=== PATIENT | female | born 1965 | race Caucasian/White ===

== ENCOUNTER 2020-03-02 05:35 | Outpatient (RCR) | payer MEDICARE ==
[~2020-03-02] VITALS: Ht 167.6 cm; Wt 91.0 kg
[~2020-03-02 05:35] MED LIST: ALPR1TAB7 PO; ARIP15TA4 PO; BUPR300T43 PO; DEXT15CA2 PO; LEVO112T55 PO; METF-399 PO; RT-ALBUINH IH; SIMV40TA25 PO
== END 2020-03-02 10:50 | disposition home or self-care (01) ==
LOC: PREOP 05:35
PROVIDERS: ATTEND Surgery
DX: Z01.812 Encounter for preprocedural laboratory examination (principal); Z20.828 Contact with and (suspected) exposure to other viral communicable diseases; Z12.11 Encounter for screening for malignant neoplasm of colon
CPT/HCPCS: 87635

== ENCOUNTER 2020-03-05 11:02 | Day surgery (SDC) | payer MEDICARE ==
[~2020-03-05] VITALS: Ht 167.6 cm; Wt 91.0 kg
--- NOTE | 2020-03-05 11:05 | Conscious Sedation/ASA ---
Conscious Sedation Pre-Proced Time 11:05 ASA Score 2 For ASA 3 and 4: Consider anesthesia and medical clearance. Also, for patients with a history of failed moderate sedation consider anesthesia. Airway Lungs Heart ASA score ASA 1: a normal healthy patient ASA 2: a patient with a mild systemic disease (mid diabetes, controlled hypertension, obesity ASA 3: a patient with a severe systemic disease that limits activity (angina, COPD, prior Myocardial infarction) ASA 4: a patient with an incapacitating disease that is a constant threat to life (CHF, renal failure) ASA 5: a moribund patient not expected to survive 24 hrs. (ruptured aneurysm) ASA 6: a declared brain- patient whose organs are being harvested. For emergent operations, add the letter E after the classification Mallampati Classification Grade 2 Sedation Plan Analgesia, Amnesia, Plan communicated to team members, Discussed options with patient/fam, Discussed risks with patient/fam The patient is an appropriate candidate to undergo the planned procedure, sedation, and anesthesia. The patient immediately re-assessed prior to indication. SHUBHAM ESTRELLA MD Mar 05, 2020 11:05
--- NOTE | 2020-03-05 11:06 | Progress Note-Pre Operative ---
Pre-Operative Progress Note H&P Reviewed The H&P was reviewed, patient examined and no changes noted. Date Seen by Provider: Mar 05, 2020 Time Seen by Provider: 11:05 Date H&P Reviewed: Mar 05, 2020 Time H&P Reviewed: 11:05 Pre-Operative Diagnosis: screening colonscopy SHUBHAM ESTRELLA MD Mar 05, 2020 11:05
[2020-03-05] MEDS ORDERED: NS IV 500 ML 500 ML ONE (11:07)
--- NOTE | 2020-03-05 11:07 | Discharge Inst-Surgical ---
D/C Lap Instructions-SAMEER Follow Up Activity as tolerated High Fiber Diet 25g or more per day Avoid Alcohol, Caffeine, Spicy [place] and Acid foods. Drink 64 fluid oz or more of fluids per day. Symptoms to Report: Fever over 101 degree F, Nausea/Vomiting If any problems/questions: Contact your physician or go to Emergency Room SHUBHAM ESTRELLA MD Mar 05, 2020 11:07
[2020-03-05] MEDS ORDERED: NS IV 500 ML 500 ML IV PRN (11:08)
[2020-03-05] MEDS ORDERED: MIDAZOLAM 5 MG/5 ML (VERSED) VIAL IV PRN (11:15)
[2020-03-05] MEDS ORDERED: LIDOCAINE JELLY 2% 6 ML SYRINGE MM PRN (11:15)
[2020-03-05] MEDS ORDERED: ACETAMINOPHEN 325 MG TABLET PO PRN (11:15)
[2020-03-05] MEDS ORDERED: HYDROcodone/APAP 5 MG/325 MG (LORTAB) TAB PO PRN (11:15)
[2020-03-05] MEDS ORDERED: morphine INJ 10 MG/ML 1ML (SYR OR VIAL) IVP PRN ×2 (11:15)
[2020-03-05] MEDS ORDERED: fentaNYL INJECTION 100 MCG/2 ML AMP IVP ONE (11:15)
[2020-03-05] MEDS ORDERED: ONDANSETRON 4 MG/2 ML (SDV) Z0FRAN IVP PRN (11:15)
[2020-03-05 11:20] VITALS: BP 125/78
[2020-03-05] MEDS ORDERED: PROPOFOL INJECTION 50 ML IV ONE (11:51)
[2020-03-05] MEDS ORDERED: MIDAZOLAM 2 MG/2 ML (VERSED) VIAL ONE (11:51)
[2020-03-05] MEDS ORDERED: LIDOCAINE JELLY 2% 6 ML SYRINGE ONE (11:57)
[2020-03-05 12:20] VITALS: BP 105/58
[2020-03-05 12:25] VITALS: BP 98/56
--- NOTE | 2020-03-05 12:27 | Progress Note-Post Operative ---
Post-Operative Progess Note Surgeon (s)/Crystal Calibrator (s) Surgeon SHUBHAM ESTRELLA MD Crystal Calibrator: none Pre-Operative Diagnosis screening colonscopy Post-Operative Diagnosis chronic stage 2 ext and int hemorrhoids, moderate sigmoid diverticulosis. small HP rectal polyp. Procedure & Operative Findings Date of Procedure 03/05/20 Procedure Performed/Findings colonoscopy with bx. Anesthesia Type mac Estimated Blood Loss Estimated blood loss (mL): minimal Specimens/Packing Specimens Removed rectal polyp SHUBHAM ESTRELLA MD Mar 05, 2020 12:26
[2020-03-05 12:30] VITALS: BP 94/51
--- NOTE | 2020-03-05 12:40 | Anesthesia-General Post-Op ---
MAC Patient Condition Mental Status/LOC: Same as Preop Cardiovascular: Satisfactory Nausea/Vomiting: Absent Respiratory: Satisfactory Pain: Controlled Complications: Absent Post Op Complications Complications None Follow Up Care/Instructions Patient Instructions None needed. Anesthesiology Discharge Order Discharge Order Patient is doing well, no complaints, stable vital signs, no apparent adverse anesthesia problems. No complications reported per nursing. RACHELLE ANDUJAR CRNA Mar 05, 2020 12:40
[2020-03-05 13:00] VITALS: BP 126/85
[2020-03-05 13:13] VITALS: BP 126/85
--- OUTSIDE RECORDS SUMMARY | 2020-03-05 13:23 | XMS REPORT | Continuity of Care Document ---
Author Organization Unknown Address Unknown Phone Unavailable Allergies Active Description Code Type Severity Reaction Onset Reported/Identified Relationship to Patient Clinical Status Yes NO KNOWN DRUG ALLERGIES UNKNOWN NO KNOWN DRUG ALLERG Yes NO KNOWN DRUG ALLERGIES UNKNOWN UNKNOWN Yes No Known Drug Allergies [id number] Drug Allergy Unknown N/A 02/27/2020 Medications There is no data. Problems Date Dx Coded Attending Type Code Diagnosis Diagnosed By 07/10/2017 W 244.9 UNSP ECIFIED HYPOTHYROIDISM 07/10/2017 W 250.00 LISA BETES MELLITUS WITHOUT MENTION OF COMPLICATION, TYPE II OR UNSPECIFIED TYPE, NOT STATED UNCONTROLLED 07/10/2017 W 272.8 OTHE R DISORDERS OF LIPOID METABOLISM 07/10/2017 W 296.7 BIPO LAR I DISORDER, MOST RECENT EPISODE (OR CURRENT) UNSPECIFIED 07/10/2017 W 300.00 ANX IETY STATE, UNSPECIFIED 07/10/2017 W 401.9 UNSP ECIFIED ESSENTIAL HYPERTENSION 07/10/2017 W 558.9 OTHE R AND UNSPECIFIED NONINFECTIOUS GASTROENTERITIS AND COLITIS 07/10/2017 W 715.95 OST EOARTHROSIS, UNSPECIFIED WHETHER GENERALIZED OR LOCALIZED, INVOLVING PELVIC REGION AND THIGH 07/10/2017 W E03.9 HYPO THYROIDISM, UNSPECIFIED 07/10/2017 W E11.9 TYPE 2 DIABETES MELLITUS WITHOUT COMPLICATIONS 07/10/2017 W E78.5 HYPE RLIPIDEMIA, UNSPECIFIED 07/10/2017 W F31.9 BIPO LAR DISORDER, UNSPECIFIED 07/10/2017 W F41.9 ANXI ETY DISORDER, UNSPECIFIED 07/10/2017 W I10 ESSENT IAL (PRIMARY) HYPERTENSION 07/10/2017 W K52.9 JAYASHREE NFECTIVE GASTROENTERITIS AND COLITIS, UNSPECIFIED 07/10/2017 W M16.9 OSTE OARTHRITIS OF HIP, UNSPECIFIED 08/16/2017 Janny Mccain W V76.19 OTHER SCREENING BREAST EXAMINATION 08/16/2017 Janny Mccain W Z12.39 ENCOUNTER FOR OTHER SCREENING FOR MALIGNANT NEOPLASM OF BREAST 08/16/2017 W 244.9 UNSP ECIFIED HYPOTHYROIDISM 08/16/2017 W 250.00 LISA BETES MELLITUS WITHOUT MENTION OF COMPLICATION, TYPE II OR UNSPECIFIED TYPE, NOT STATED UNCONTROLLED 08/16/2017 W 272.8 OTHE R DISORDERS OF LIPOID METABOLISM 08/16/2017 W 401.9 UNSP ECIFIED ESSENTIAL HYPERTENSION 08/16/2017 W E03.9 HYPO THYROIDISM, UNSPECIFIED 08/16/2017 W E11.9 TYPE 2 DIABETES MELLITUS WITHOUT COMPLICATIONS 08/16/2017 W E78.5 HYPE RLIPIDEMIA, UNSPECIFIED 08/16/2017 W I10 ESSENT IAL (PRIMARY) HYPERTENSION 08/16/2017 W V72.31 ROU SABRINA GYNECOLOGICAL EXAMINATION 08/16/2017 W V76.19 OTH ER SCREENING BREAST EXAMINATION 08/16/2017 W Z01.411 EN COUNTER FOR GYNECOLOGICAL EXAMINATION (GENERAL) (ROUTINE) WITH ABNORMAL FINDINGS 08/16/2017 W Z12.39 ENC OUNTER FOR OTHER SCREENING FOR MALIGNANT NEOPLASM OF BREAST 11/14/2017 W 250.00 LISA BETES MELLITUS WITHOUT MENTION OF COMPLICATION, TYPE II OR UNSPECIFIED TYPE, NOT STATED UNCONTROLLED 11/14/2017 W 296.30 CINDI OR DEPRESSIVE DISORDER, RECURRENT EPISODE, UNSPECIFIED DEGREE 11/14/2017 W 296.80 BIP OLAR DISORDER, UNSPECIFIED 11/14/2017 W 709.9 UNSP ECIFIED DISORDER OF SKIN AND SUBCUTANEOUS TISSUE 11/14/2017 W 783.1 ABNO RMAL WEIGHT GAIN 11/14/2017 W E11.9 TYPE 2 DIABETES MELLITUS WITHOUT COMPLICATIONS 11/14/2017 W F31.9 BIPO LAR DISORDER, UNSPECIFIED 11/14/2017 W F33.9 GARY R DEPRESSIVE DISORDER, RECURRENT, UNSPECIFIED 11/14/2017 W L98.9 DISO RDER OF THE SKIN AND SUBCUTANEOUS TISSUE, UNSPECIFIED 11/14/2017 W R63.5 ABNO RMAL WEIGHT GAIN 11/23/2017 W 250.00 LISA BETES MELLITUS WITHOUT MENTION OF COMPLICATION, TYPE II OR UNSPECIFIED TYPE, NOT STATED UNCONTROLLED 11/23/2017 W 296.30 CINDI OR DEPRESSIVE DISORDER, RECURRENT EPISODE, UNSPECIFIED DEGREE 11/23/2017 W 300.00 ANX IETY STATE, UNSPECIFIED 11/23/2017 W 709.9 UNSP ECIFIED DISORDER OF SKIN AND SUBCUTANEOUS TISSUE 11/23/2017 W E11.9 TYPE 2 DIABETES MELLITUS WITHOUT COMPLICATIONS 11/23/2017 W F33.9 GARY R DEPRESSIVE DISORDER, RECURRENT, UNSPECIFIED 11/23/2017 W F41.9 ANXI ETY DISORDER, UNSPECIFIED 11/23/2017 W L98.9 DISO RDER OF THE SKIN AND SUBCUTANEOUS TISSUE, UNSPECIFIED 11/30/2017 W V58.32 ENC OUNTER FOR REMOVAL OF SUTURES 11/30/2017 W Z48.02 ENC OUNTER FOR REMOVAL OF SUTURES 01/30/2018 Kalyn Janny W 244.9 UNSPECIFIED HYPOTHYROIDISM 01/30/2018 Kalyn, Janny W 250.00 DIABETES MELLITUS WITHOUT MENTION OF COMPLICATION, TYPE II OR UNSPECIFIED TYPE, NOT STATED UNCONTROLLED 01/30/2018 KalynJanny W 272.8 OTHER DISORDERS OF LIPOID METABOLISM 01/30/2018 KalynJanny W 296.7 BIPOLAR I DISORDER, MOST RECENT EPISODE (OR CURRENT) UNSPECIFIED 01/30/2018 KalynJanny W E03.9 HYPOTHYROIDISM, UNSPECIFIED 01/30/2018 Kalyn, Janny W E11.9 TYPE 2 DIABETES MELLITUS WITHOUT COMPLICATIONS 01/30/2018 KalynJanny W E78.5 HYPERLIPIDEMIA, UNSPECIFIED 01/30/2018 Kalyn, Janny W F31.9 BIPOLAR DISORDER, UNSPECIFIED 01/30/2018 Kalyn, Janny W 244.9 UNSPECIFIED HYPOTHYROIDISM 01/30/2018 Kalyn, Janny W 250.00 DIABETES MELLITUS WITHOUT MENTION OF COMPLICATION, TYPE II OR UNSPECIFIED TYPE, NOT STATED UNCONTROLLED 01/30/2018 KalynJanny W 272.8 OTHER DISORDERS OF LIPOID METABOLISM 01/30/2018 KalynJanny W 296.7 BIPOLAR I DISORDER, MOST RECENT EPISODE (OR CURRENT) UNSPECIFIED 01/30/2018 KalynJanny W E03.9 HYPOTHYROIDISM, UNSPECIFIED 01/30/2018 Kalyn, Janny W E11.9 TYPE 2 DIABETES MELLITUS WITHOUT COMPLICATIONS 01/30/2018 Kalyn, Janny W E78.5 HYPERLIPIDEMIA, UNSPECIFIED 01/30/2018 Kalyn, Janny W F31.9 BIPOLAR DISORDER, UNSPECIFIED 01/30/2018 W 244.9 UNSP ECIFIED HYPOTHYROIDISM 01/30/2018 W 250.00 LISA BETES MELLITUS WITHOUT MENTION OF COMPLICATION, TYPE II OR UNSPECIFIED TYPE, NOT STATED UNCONTROLLED 01/30/2018 W 272.8 OTHE R DISORDERS OF LIPOID METABOLISM 01/30/2018 W 296.7 BIPO LAR I DISORDER, MOST RECENT EPISODE (OR CURRENT) UNSPECIFIED 01/30/2018 W E03.9 HYPO THYROIDISM, UNSPECIFIED 01/30/2018 W E11.9 TYPE 2 DIABETES MELLITUS WITHOUT COMPLICATIONS 01/30/2018 W E78.5 HYPE RLIPIDEMIA, UNSPECIFIED 01/30/2018 W F31.9 BIPO LAR DISORDER, UNSPECIFIED 08/22/2018 Kalyn, Janny W 244.9 08/22/2018 Kalyn, Janny W 250.00 DIABETES MELLITUS WITHOUT MENTION OF COMPLICATION, TYPE II OR UNSPECIFIED TYPE, NOT STATED UNCONTROLLED 08/22/2018 Kalyn, Janny W 272.8 08/22/2018 Kalyn, Janny W 278.00 OBESITY, UNSPECIFIED 08/22/2018 Kalyn, Janny W 296.7 08/22/2018 Kalyn, Janny W 300.00 08/22/2018 Kalyn, Janny W 305.1 TOBACCO USE DISORDER 08/22/2018 Kalyn, Janny W 311 08/22/2018 Kalyn, Janny W 401.9 UNSPECIFIED ESSENTIAL HYPERTENSION 08/22/2018 Kalyn, Janny W 530.81 08/22/2018 Kalyn, Janny W 724.2 LUMBAGO 08/22/2018 Kalyn, Janny W E03.9 HYPOTHYROIDISM, UNSPECIFIED 08/22/2018 Kalyn, Janny W E11.9 TYPE 2 DIABETES MELLITUS WITHOUT COMPLICATIONS 08/22/2018 Kalyn, Janny W E66.9 OBESITY, UNSPECIFIED 08/22/2018 Kalyn, Janny W E78.5 HYPERLIPIDEMIA, UNSPECIFIED 08/22/2018 Kalyn, Janny W F31.9 BIPOLAR DISORDER, UNSPECIFIED 08/22/2018 Kalyn, Janny W F32.9 MAJOR DEPRESSIVE DISORDER, SINGLE EPISODE, UNSPECIFIED 08/22/2018 Kalyn, Janny W F41.9 ANXIETY DISORDER, UNSPECIFIED 08/22/2018 Kalyn, Janny W I10 ESSENTIAL (PRIMARY) HYPERTENSION 08/22/2018 Kalyn, Janny W K21.0 08/22/2018 Kalyn, Janny W M54.5 LOW BACK PAIN 08/22/2018 Kalyn, Janny W Z72.0 TOBACCO USE 08/22/2018 W 244.9 UNSP ECIFIED HYPOTHYROIDISM 08/22/2018 W 250.00 LISA BETES MELLITUS WITHOUT MENTION OF COMPLICATION, TYPE II OR UNSPECIFIED TYPE, NOT STATED UNCONTROLLED 08/22/2018 W 272.8 OTHE R DISORDERS OF LIPOID METABOLISM 08/22/2018 W 278.00 OBE SITY, UNSPECIFIED 08/22/2018 W 296.7 BIPO LAR I DISORDER, MOST RECENT EPISODE (OR CURRENT) UNSPECIFIED 08/22/2018 W 300.00 ANX IETY STATE, UNSPECIFIED 08/22/2018 W 305.1 TOBA TOPOGRAPHY TECHNICIAN USE DISORDER 08/22/2018 W 311 DEPRES SIVE DISORDER, NOT ELSEWHERE CLASSIFIED 08/22/2018 W 401.9 UNSP ECIFIED ESSENTIAL HYPERTENSION 08/22/2018 W 530.81 ESO PHAGEAL REFLUX 08/22/2018 W 724.2 LUMBAGO 08/22/2018 W E03.9 HYPO THYROIDISM, UNSPECIFIED 08/22/2018 W E11.9 TYPE 2 DIABETES MELLITUS WITHOUT COMPLICATIONS 08/22/2018 W E66.9 OBES ITY, UNSPECIFIED 08/22/2018 W E78.5 HYPE RLIPIDEMIA, UNSPECIFIED 08/22/2018 W F31.9 BIPO LAR DISORDER, UNSPECIFIED 08/22/2018 W F32.9 GARY R DEPRESSIVE DISORDER, SINGLE EPISODE, UNSPECIFIED 08/22/2018 W F41.9 ANXI ETY DISORDER, UNSPECIFIED 08/22/2018 W I10 ESSENT IAL (PRIMARY) HYPERTENSION 08/22/2018 W K21.0 SANDHYA RO-ESOPHAGEAL REFLUX DISEASE WITH ESOPHAGITIS 08/22/2018 W M54.5 LOW BACK PAIN 08/22/2018 W Z72.0 TOBA TOPOGRAPHY TECHNICIAN USE 09/17/2018 W 244.9 UNSP ECIFIED HYPOTHYROIDISM 09/17/2018 W 250.80 LISA BETES MELLITUS WITH OTHER SPECIFIED MANIFESTATIONS, TYPE II OR UNSPECIFIED TYPE, NOT STATED UNCONTROLLED 09/17/2018 W 272.4 OTHE R AND UNSPECIFIED HYPERLIPIDEMIA 09/17/2018 W 278.00 OBE SITY, UNSPECIFIED 09/17/2018 W 296.7 BIPO LAR I DISORDER, MOST RECENT EPISODE (OR CURRENT) UNSPECIFIED 09/17/2018 W 300.00 ANX IETY STATE, UNSPECIFIED 09/17/2018 W 305.1 TOBA TOPOGRAPHY TECHNICIAN USE DISORDER 09/17/2018 W 311 DEPRES SIVE DISORDER, NOT ELSEWHERE CLASSIFIED 09/17/2018 W 401.0 MEHRAN GNANT ESSENTIAL HYPERTENSION 09/17/2018 W 530.81 ESO PHAGEAL REFLUX 09/17/2018 W 724.2 LUMBAGO 09/17/2018 W E03.9 HYPO THYROIDISM, UNSPECIFIED 09/17/2018 W E11.65 TYP E 2 DIABETES MELLITUS WITH HYPERGLYCEMIA 09/17/2018 W E66.9 OBES ITY, UNSPECIFIED 09/17/2018 W E78.5 HYPE RLIPIDEMIA, UNSPECIFIED 09/17/2018 W F31.9 BIPO LAR DISORDER, UNSPECIFIED 09/17/2018 W F32.9 GARY R DEPRESSIVE DISORDER, SINGLE EPISODE, UNSPECIFIED 09/17/2018 W F41.9 ANXI ETY DISORDER, UNSPECIFIED 09/17/2018 W I10 ESSENT IAL (PRIMARY) HYPERTENSION 09/17/2018 W K21.0 SANDHYA RO-ESOPHAGEAL REFLUX DISEASE WITH ESOPHAGITIS 09/17/2018 W M54.5 LOW BACK PAIN 09/17/2018 W V72.31 ROU SABRINA GYNECOLOGICAL EXAMINATION 09/17/2018 W V76.19 OTH ER SCREENING BREAST EXAMINATION 09/17/2018 W Z01.411 EN COUNTER FOR GYNECOLOGICAL EXAMINATION (GENERAL) (ROUTINE) WITH ABNORMAL FINDINGS 09/17/2018 W Z12.39 ENC OUNTER FOR OTHER SCREENING FOR MALIGNANT NEOPLASM OF BREAST 09/17/2018 W Z72.0 TOBA TOPOGRAPHY TECHNICIAN USE 09/20/2018 Kalyn Janny W V76.19 OTHER SCREENING BREAST EXAMINATION 09/20/2018 Kalyn Janny W Z12.39 ENCOUNTER FOR OTHER SCREENING FOR MALIGNANT NEOPLASM OF BREAST 10/08/2018 Kalyn Janny W 244.9 UNSPECIFIED HYPOTHYROIDISM 10/08/2018 Kalyn Janny W E03.9 HYPOTHYROIDISM, UNSPECIFIED 10/08/2018 W 244.9 UNSP ECIFIED HYPOTHYROIDISM 10/08/2018 W E03.9 HYPO THYROIDISM, UNSPECIFIED 11/22/2018 W 461.9 ACUT E SINUSITIS, UNSPECIFIED 11/22/2018 W 478.19 OTH ER DISEASE OF NASAL CAVITY AND SINUSES 11/22/2018 W 780.60 FEV ER, UNSPECIFIED 11/22/2018 W J01.90 ACU TE SINUSITIS, UNSPECIFIED 11/22/2018 W R09.81 BOBBY AL CONGESTION 11/22/2018 W R50.9 FEVE R, UNSPECIFIED 02/06/2020 Kalyn Janny W E03.9 HYPOTHYROIDISM, UNSPECIFIED 02/06/2020 Kalyn, Janny W E11.9 TYPE 2 DIABETES MELLITUS WITHOUT COMPLICATIONS 02/06/2020 Kalyn, Janny W E78.5 HYPERLIPIDEMIA, UNSPECIFIED 02/06/2020 Kalyn, Janny W I10 ESSENTIAL (PRIMARY) HYPERTENSION 02/06/2020 Kalyn, Janny W E03.9 HYPOTHYROIDISM, UNSPECIFIED 02/06/2020 Kalyn, Janny W E11.9 TYPE 2 DIABETES MELLITUS WITHOUT COMPLICATIONS 02/06/2020 Kalyn, Janny W E66.9 OBESITY, UNSPECIFIED 02/06/2020 Kalyn, Janny W E78.5 HYPERLIPIDEMIA, UNSPECIFIED 02/06/2020 Kalyn, Janny W I10 ESSENTIAL (PRIMARY) HYPERTENSION 02/06/2020 Kalyn, Janny W N63.20 UNSPECIFIED LUMP IN THE LEFT BREAST, UNSPECIFIED QUADRANT 02/06/2020 Kalyn, Janny W R06.00 DYSPNEA, UNSPECIFIED 02/06/2020 Kalyn, Janny Price R10.83 COLIC 02/06/2020 Kalyn, Janny Price Z12.39 ENCOUNTER FOR OTH SCREENING FOR MALIGNANT NEOPLASM OF BREAST 02/06/2020 Kalyn, Janny Price Z72.0 TOBACCO USE Procedures There is no data. Results Test Result Range Mycoplasma - 10/02/16 11:29 Mycoplasma Negative Negative Thyroid Stimulating Hormone - 11/28/16 1 0:58 TSH 2.68 mIU/mL 0.32-5.00 Thyroid Stimulating Hormone - 07/10/17 0 9:00 TSH 4.74 mIU/mL 0.32-5.00 Surgical Pathology - 11/23/17 11:00 Surg Path Sent to [facility] Thyroid Stimulating Hormone - 01/30/18 1 3:27 TSH 4.08 mIU/mL 0.32-5.00 Hemoglobin A1C - 01/30/18 15:27 % A1C 6.60 % 5.40-6.60 AvGlu 158 mg/dL 70-110 Thyroid Stimulating Hormone - 08/22/18 0 9:15 TSH 5.98 mIU/mL 0.32-5.00 Thyroid Stimulating Hormone - 10/08/18 0 9:00 TSH 0.92 mIU/mL 0.32-5.00 Hemoglobin A1C - 06/19/19 11:05 % A1C 6.70 % 5.40-6.60 AvGlu 146 Testing performed at [facility] mg/dL 70-110 Comprehensive Metabolic Panel - 02/06/20 08:20 Albumin 4.4 g/dL 3.6-5.1 ALP 127 U/L 35-130 ALT 18 U/L 6-45 Anion Gap 16 6-14 AST 16 U/L 2-40 BUN 12 mg/dL 5-25 Calcium 9.4 mg/dL 8.3-10.4 Chloride 103 mmol/L 95-114 CO2 26 mEq/L 22-33 Creat 0.95 mg/dL 0.50-1.50 eGFR 61 mL/min/1.73m2 >59 Globulin 3.1 g/dL 2.3-3.5 Glucose 128 mg/dL 70-110 Osmo 290 280-295 Potassium 4.6 mmol/L 3.5-5.3 Sodium 140 mmol/L 134-148 TBil 0.9 mg/dL 0.2-1.2 TP 7.5 g/dL 6.0-8.3 Encounters ACCT No. Visit Date/Time Discharge Status Pt. Type Provider Facility Loc./Unit Complaint [id number] 09/30/2016 10:28:12 09/30/2016 23:59: 59 CLS Outpatient Juancho Go [id number] 03/05/2016 14:35:08 03/05/2016 23:59: 59 CLS Outpatient Kunal Mitchellson [id number] 02/06/2020 09:54:00 02/06/2020 23:59 :00 DIS Outpatient Janny Mccain [id number] 02/06/2020 08:00:00 02/06/2020 23:59 :00 DIS Outpatient Janny Mccain [id number] 02/04/2020 09:48:00 02/04/2020 23:59 :00 DIS Outpatient KalynJanny [id number] 02/02/2020 08:12:00 02/02/2020 23:59 :00 DIS Outpatient Kalyn, Janny [id number] 01/30/2020 09:25:00 01/30/2020 23:59 :00 DIS Outpatient Kalyn, Janny [id number] 08/26/2019 09:47:00 08/26/2019 23:59 :00 DIS Outpatient Janny Mccain [id number] 06/19/2019 15:16:00 06/19/2019 23:59: 00 DIS Outpatient Janny Mccain [id number] 06/19/2019 10:27:00 06/19/2019 23:59: 00 DIS Outpatient Kalyn, Janny [id number] 10/08/2018 09:39:00 10/08/2018 23:59: 00 DIS Outpatient Kalyn, Janny [id number] 09/20/2018 08:46:00 09/20/2018 23:59: 00 DIS Outpatient Kalyn, Janny [id number] 08/22/2018 11:47:00 08/22/2018 23:59: 00 DIS Outpatient Klayn, Janny [id number] 01/30/2018 13:26:00 01/30/2018 23:59: 00 DIS Outpatient Kalyn, Janny [id number] 11/23/2017 14:14:00 11/23/2017 23:59: 00 DIS Outpatient Kalyn, Janny [id number] 08/16/2017 12:09:00 08/16/2017 23:59: 00 DIS Outpatient Kalyn, Janny [id number] 07/10/2017 12:23:00 07/10/2017 23:59: 00 DIS Outpatient Christiano Betlran [id number] 03/28/2017 11:10:00 03/28/2017 23:59: 00 DIS Outpatient Kalyn, Janny [id number] 11/28/2016 11:20:00 11/28/2016 23:59: 00 DIS Outpatient Batsheva Escobar [id number] 10/02/2016 11:24:00 10/02/2016 23:59: 00 DIS Outpatient Shawn Batsheva [id number] 11/22/2018 10:20:00 Document Registration [id number] 10/08/2018 08:39:00 Document Registration [id number] 09/17/2018 09:20:00 Document Registration [id number] 08/22/2018 08:19:00 Document Registration [id number] 01/30/2018 10:19:00 Document Registration [id number] 11/30/2017 09:23:00 Document Registration [id number] 11/23/2017 10:24:00 Document Registration [id number] 11/14/2017 10:26:00 Document Registration [id number] 08/16/2017 10:47:00 Document Registration [id number] 07/10/2017 08:22:00 Document Registration [id number] 03/02/2020 05:35:00 10:50:00 DIS Outpatient SHUBHAM ESTRELLA MD [facility] PREOP COLONOSCOPY [id number] 03/05/2020 12:00:00 P EN Preadmit SHUBHAM ESTRELLA MD [facility] ENDO SCREENING.
--- NOTE | 2020-03-05 17:10 | OPERATIVE REPORT ---
DATE OF SERVICE: 03/05/2020 ATTENDING BILLBOARD POSTER HELPER: KEVIN Tripathi. PREOPERATIVE DIAGNOSIS: Screening colonoscopy. POSTOPERATIVE DIAGNOSES: Mild chronic stage II external and internal hemorrhoids, mild sigmoid diverticulosis, small hyperplastic rectal polyp 2 mm in size. PROCEDURE PERFORMED: Colonoscopy with biopsy. SURGEON: Shubham Estrella MD. ANESTHESIA: Monitored anesthesia care. ESTIMATED BLOOD LOSS: Minimal. FINDINGS: Same as postoperative diagnosis. DISPOSITION: The patient tolerated the procedure well. INDICATIONS FOR PROCEDURE: The patient is a 54-year-old female referred over to us for screening colonoscopy. She has not had a colonoscopy up to this point in her life. She does report some intermittent episodes of constipation. She does not report any red blood per rectum nor any dark tarry stools. She also does not report any family history of colon cancer. DESCRIPTION OF PROCEDURE: The patient was brought to the endoscopy suite and laid in the left lateral decubitus position. After adequate IV pain and sedative medications and monitored anesthesia care, a digital rectal examination was performed. Mild chronic stage II external and internal hemorrhoids were identified, which were not actively edematous nor inflamed and no bleeding. Normal sphincter tone was felt and there were no palpable masses. The endoscope was then intubated and anus and rectum gently insufflated. The endoscope was then advanced to the valves of Estrada of the rectum and a small hyperplastic polyp approximately 2 mm in size identified. This was biopsied and destroyed using forceps and electrocautery with visualization of good hemostasis. The endoscope was then advanced through the sigmoid colon where mild to moderate sigmoid diverticulosis identified. There were no mucosal inflammatory changes to indicate any diverticulitis. The endoscope was then advanced to the remainder of the descending, transverse and ascending colon to the cecum. These segments were normal. There were no other lesions identified. The endoscope was then slowly withdrawn while taking a second look and suctioning of residual air with no additional findings. The patient tolerated the procedure well. We will recommend a high fiber diet with at least 25 grams of fiber daily as well as significant amounts of water to promote soft stools on a daily basis. We will await the biopsy results and if this is a hyperplastic polyp as it appears and she is asymptomatic, she does not need another colonoscopy for another 10 years. Job ID: [id number] DocumentID: [id number] Dictated Date: 03/05/2020 12:27:21 Yard Truck Driver Date: 03/05/2020 17:09:11 Dictated By: SHUBHAM ESTRELLA MD
== END 2020-03-05 13:13 | disposition home or self-care (01) ==
LOC: ENDO 11:02
PROVIDERS: ATTEND Surgery
DX: Z12.11 Encounter for screening for malignant neoplasm of colon (principal); K62.1 Rectal polyp; K57.30 Diverticulosis of large intestine without perforation or abscess without bleeding; K64.1 Second degree hemorrhoids; E78.00 Pure hypercholesterolemia, unspecified; E03.9 Hypothyroidism, unspecified; F41.9 Anxiety disorder, unspecified; K21.9 Gastro-esophageal reflux disease without esophagitis; E11.9 Type 2 diabetes mellitus without complications; E78.5 Hyperlipidemia, unspecified; F90.9 Attention-deficit hyperactivity disorder, unspecified type; H40.9 Unspecified glaucoma; F17.210 Nicotine dependence, cigarettes, uncomplicated; Z79.899 Other long term (current) drug therapy; Z79.890 Hormone replacement therapy; Z79.84 Long term (current) use of oral hypoglycemic drugs
CPT/HCPCS: 88305